=== PATIENT | male | born 1950 | race Caucasian/White ===

== ENCOUNTER 2021-12-02 12:46 | Outpatient (CLI) | payer MEDICARE, SELFPAY ==
--- NOTE | ~2021-12-02 | XR_ITS ---
EXAMINATION: XR femur LT min 2V INDICATION: Myalgia TECHNIQUE: Two views of the left femur are obtained on four radiographs COMPARISON: None available FINDINGS: Bone alignment is normal. There is no fracture. There is mild osteoarthritis of the hip and left knee. The soft tissues are unremarkable. IMPRESSION: 1. Mild osteoarthritis. Reviewed, dictated and finalized at location B. M CONDITIONER FILLING IMPRESSION: 1. Mild osteoarthritis.
--- NOTE | ~2021-12-02 | XR_ITS ---
EXAMINATION: XR femur RT min 2V DATE: 12/02/2021 13:44 INDICATION: Myalgia. TECHNIQUE: 2 views of right femur on 4 radiographs were obtained. COMPARISON: None. FINDINGS: Bone alignment is normal. No fracture. There is mild right hip and knee osteoarthritis. No knee joint effusion. IMPRESSION: 1. Mild polyarticular osteoarthritis. Reviewed, dictated and finalized at location A. OR TECHNICAL RECRUITER
--- NOTE | ~2021-12-02 | XR_ITS ---
EXAMINATION: XR hip BI 2V w AP pelvis DATE: 12/02/2021 13:44 INDICATION: Myalgia TECHNIQUE: AP view the pelvis and two views of each hip were obtained. COMPARISON: None. FINDINGS: Bone alignment is normal. There is no fracture. There is mild osteoarthritis of the hips. T he soft tissues are unremarkable. IMPRESSION: 1. Mild osteoarthritis of the hips. Reviewed, dictated and finalized at location B. RBARIC TECHNOLOGIST
--- NOTE | ~2021-12-02 | XR_ITS ---
EXAMINATION: XR lumbar spine 2-3V DATE: 12/02/2021 13:45 INDICATION: Myalgia TECHNIQUE: Anteroposterior and lateral views of the lumbar spine, and cone-down lateral view of the l umbosacral junction were obtained. COMPARISON: None. FINDINGS: There is no fracture, dislocation, or subluxation. The vertebral body heights, alignment, a nd intervertebral disc spaces are normal. The paravertebral soft tissues are unremarkable. Small dege nerative osteophytes project from the anterior endplates of multiple vertebral bodies. IMPRESSION: 1. Mild lumbar spondylosis. Reviewed, dictated and finalized at location B. UATE TEACHING ASSISTANT IMPRESSION: 1. Mild lumbar spondylosis.
--- NOTE | ~2021-12-02 | XR_ITS ---
EXAMINATION: XR shoulder RT min 2V DATE: 12/02/2021 13:44 INDICATION: Myalgia. TECHNIQUE: 4 views of right shoulder were obtained. COMPARISON: None. FINDINGS: Bone alignment is normal. No fracture. There is mild osteoarthritis of glenohumeral joint a nd acromioclavicular joint. IMPRESSION: 1. Mild polyarticular osteoarthritis. Reviewed, dictated and finalized at location A. H STILL OPERATOR
== END 2021-12-02 12:47 | disposition home or self-care (01) ==
LOC: ANHIMG 12:54
PROVIDERS: PCP Family Medicine; Visit Provider Family Medicine
DX: M79.10 Myalgia, unspecified site (principal); M16.0 Bilateral primary osteoarthritis of hip; M47.896 Other spondylosis, lumbar region; M19.011 Primary osteoarthritis, right shoulder
CPT/HCPCS: 72100; 73030; 73521; 73552

== ENCOUNTER 2022-02-01 08:48 | Outpatient (CLI) | payer MEDICARE, SELFPAY ==
--- NOTE | ~2022-02-01 | XR_ITS ---
XR shoulder LT min 2V DATE: 02/01/2022 09:15 INDICATION: Neck pain, left shoulder pain. TECHNIQUE: 2 views COMPARISON: None FINDINGS: No fracture, dislocation, periosteal reaction or bone destruction or abnormal soft tissue c alcification. Normal alignment at the acromioclavicular and glenohumeral joints. IMPRESSION: No significant abnormality Reviewed, dictated and finalized at location B. IMPRESSION: No significant abnormality
--- NOTE | ~2022-02-01 | XR_ITS ---
XR knee RT 2V DATE: 02/01/2022 09:16 INDICATION: Right knee pain TECHNIQUE: Standing AP and lateral views COMPARISON: None FINDINGS: No fracture or dislocation or joint effusion. No radiopaque intra-articular loose body or c hondrocalcinosis. No periosteal reaction or bone destruction. IMPRESSION: Negative Reviewed, dictated and finalized at location B. IMPRESSION: Negative
--- NOTE | ~2022-02-01 | XR_ITS ---
XR_CERV2-3V_CR DATE: 02/01/2022 09:15 INDICATION: Neck pain TECHNIQUE: AP, lateral and one oblique views COMPARISON: None FINDINGS: C1 and C2 are normally aligned and the odontoid process is intact. No fracture or dislocati on or locked facet or prevertebral soft tissue swelling is detected. There is straightening of the cervical spine which may be due to muscle spasm. There is moderately severe degenerative disc disease at C5-6 and C6-7. There is uncovertebral joint spurring at C5-6 and C6-7. Calcifications in the region of both carotid bulbs. IMPRESSION: Straightening of the cervical spine, which may be due to muscle spasm Moderately severe degenerative disc disease at C5-6 and C6-7 Reviewed, dictated and finalized at Location A. Reviewed, dictated and finalized at location B.
--- NOTE | ~2022-02-01 | XR_ITS ---
XR knee LT 2V DATE: 02/01/2022 09:15 INDICATION: Left knee pain TECHNIQUE: Standing AP and lateral views COMPARISON: None FINDINGS: Mild superior pole patellar enthesopathy at quadriceps tendon insertion. No fracture or dislocation or joint effusion. No periosteal reaction or bone destruction. No radiopaq ue intra-articular loose body or chondrocalcinosis. Joint spaces are well preserved. IMPRESSION: No significant abnormality Reviewed, dictated and finalized at location B. IMPRESSION: No significant abnormality
== END 2022-02-01 08:49 | disposition home or self-care (01) ==
PROVIDERS: PCP Family Medicine; Visit Provider Internal Medicine Rheumatology
DX: M25.562 Pain in left knee (principal); M47.812 Spondylosis without myelopathy or radiculopathy, cervical region; M25.561 Pain in right knee; M25.512 Pain in left shoulder
CPT/HCPCS: 72040; 73030; 73560

== ENCOUNTER → 2022-05-18 08:14 | Outpatient (CLI) | payer MEDICARE, SELFPAY ==
--- NOTE | ~2022-05-18 | DEXA_ITS ---
Bone Density Report Name: JAGDISH MOORE Age: 71 Sex: Male Ethnicity: White Date of : 1950 Indication: history of glucocorticoids; Referring Provider: LEE RENE Study: Bone densitometry was performed. Exam Date: May 18, 2022 Accession number: [id number] Bone Density: Region BMD T-score Z-score Classification AP Spine (L1-L4) 0.826 -2.4 -1.5 Osteopenia Femoral Neck (Left) 0.650 -2.1 -0.9 Osteopenia Total Hip (Left) 0.829 -1.3 -0.7 Osteopenia Femoral Neck (Right) 0.654 -2.0 -0.9 Osteopenia Total Hip (Right) 0.848 -1.2 -0.6 Osteopenia Total Hip Mean 0.839 -1.3 -0.7 Osteopenia World Health Organization criteria for BMD impression classify patients as: Normal (T-score at or above -1.0), Osteopenia (T-score between -1.0 and -2.5), or Osteoporosis (T-score at or below -2.5). 10-year Fracture Risk(1): Major Osteoporotic Fracture 12% Hip Fracture 3.4% Reported Risk Factors: [place] (), Neck BMD=0.654, BMI=28.3, glucocorticoids (1) FRAX(R) Version 3.08. Fracture probability calculated for an untreated patient. Fracture probability may be lower if the patient has received treatment. Clinical Information Provided by Patient: Has taken Glucocorticoids Patient maximum height was 72 Drinks caffeinated beverages Impression: The patient has low bone mass, based on the Total Spine T-score. The patient has an estimated ten-year risk of hip fracture of 3.4% and an estimated ten-year risk of major fracture of 12%, based on the WHO FRAX algorithm. The patient has risk factors, including: history of glucocorticoid therapy. Discussion: BONE DENSITY IS LOW AT ONE OR MORE SKELETAL SITES. THE PATIENT'S BMD AND CLINICAL RISK FACTORS CONTRIBUTE TO THIS PATIENT'S INCREASED RISK OF FRACTURE. This patient's lowest T-score is low at one or more skeletal sites. It meets the World Health Organization's (WHO) criteria for ?low bone mass? (T-score between -1.0 and -2.5). The patient's 10-year risk of hip fracture as calculated by FRAX exceeds the threshold where pharmacological therapy is recommended by the National Osteoporosis Foundation (NOF). However, all treatment decisions require clinical judgment and consideration of individual patient factors, including patient preferences, comorbidities, previous drug use, risk factors not captured in the FRAX model (e.g., frailty, falls, vitamin D deficiency, increased bone turnover, interval significant decline in bone density) and possible under or overestimation of fracture risk by FRAX. The patient should follow a healthful lifestyle (good nutrition with adequate calcium and vitamin D, and appropriate weight-bearing exercise). Follow-Up: Consider repeating this study in 2 years to reassess this patient's status, or sooner if there is some new clinical indication.
== END ==
PROVIDERS: PCP Family Medicine; Visit Provider Internal Medicine Rheumatology
DX: M85.88 Other specified disorders of bone density and structure, other site (principal); M85.852 Other specified disorders of bone density and structure, left thigh; M85.851 Other specified disorders of bone density and structure, right thigh; Z79.52 Long term (current) use of systemic steroids
CPT/HCPCS: 77080

== ENCOUNTER 2022-09-27 06:27 | Day surgery (SDC) | payer MEDICARE, SELFPAY ==
[2022-09-12 14:07] VITALS: BMI 27.1
[2022-09-27 06:41] VITALS: BP 124/70; PULSE 83; RESP 18; TEMP 36.3; O2SAT 98
[2022-09-27] MEDS: LACTATED RINGERS 1,000 ML 150 ML IV CONT (06:51)
--- NOTE | 2022-09-27 07:20 | P.PNAN_ITS ---
Anes - Initial Pre Proc Eval Procedure: Operation Date: 09/27/22 08:00 Proposed Procedures p Screening Colonoscopy - Edgar Glass MD Date/Time: 09/27/22 07:20 Surgeon: Edgar Glass MD Pre Op Diagnosis: Hx of colon polyps Patient Data Age: 71 Gender: M Height: 1.83 m Weight: 95.5 kg Last Vital Signs Temp 97.3 F L 09/27/22 06:41 Pulse 83 09/27/22 06:41 Resp 18 09/27/22 06:41 BP 124/70 09/27/22 06:41 Pulse Ox 98 09/27/22 06:41 O2 Del Method Room Air 09/27/22 06:41 Allergies Allergy/AdvReac Type Severity Reaction Status Date / Time No Known Allergies Allergy Unknown Verified 09/27/22 06:40 Home Medications Medication Instructions Recorded Confirmed Type folic acid 1 mg tablet 1 mg PO DAILY 02/07/22 09/12/22 History omeprazole magnesium 20 mg 20 mg PO DAILY 02/07/22 09/12/22 History tablet,delayed release (Prilosec OTC) hydrochlorothiazide 12.5 mg tablet See Rx Instructions .Route 03/29/22 09/12/22 Rx .COMPLEX #90 tabs losartan 25 mg tablet See Rx Instructions .Route 03/29/22 09/12/22 Rx .COMPLEX #90 tabs omega-3 fatty acids 1,000 mg 1,000 mg PO BID 05/04/22 09/12/22 History capsule alendronate 70 mg tablet 70 mg PO WEEKLY 08/11/22 09/12/22 History methotrexate sodium 2.5 mg tablet 12.5 mg PO WEEKLY 08/11/22 09/12/22 History prednisone 10 mg tablet 10 mg PO DAILY 08/11/22 09/12/22 History pravastatin 10 mg tablet See Rx Instructions .Route 09/08/22 09/12/22 Rx .COMPLEX #90 tabs Patient hx anesthesia problems: none Family hx anesthesia problems: none Results Review: All pre-operative results and documents have been reviewed as part of the pre- operative evaluation. [facility] Social History Social History Smoking status: Former smoker Tobacco type: cigarettes Alcohol intake: current Drinks per week: 5 Substance use: never Substance use type: does not use Lack of Transportation: No Lack of Food: Never True Current Housing: I Have Housing Concerned About Future Housing: No Difficulty Paying Gas/Electric Bills: No Difficulty Paying for Meds: No Currently Unemployed: No Education: Trade/Vocational Certificate Difficulty w/ Childcare or Family Care: No Living arrangements: with family Spiritual care concerns: No Anes - Eval Final PreProcedure Day of Procedure 09/27/22 07:20 Patient weight: obese Heart: regular rate and rhythm Lungs: clear to auscultation Airway: Mallampati scale class II Neurological: alert and oriented Last oral intake: >/= 8 hours ASA classification: III Emergent: no Anesthetic plan: proceed Anesthesia type and monitoring: general GIVS and standard monitoring Results Review: All pre-operative results and documents have been reviewed as part of the pre- operative evaluation. Informed Consent: The patient's anesthetic plan and its attendant risks and benefits were discussed with the patient/family/POA. Questions were solicited and answers provided to the satisfaction of the patient/family/POA.
--- NOTE | 2022-09-27 07:29 | P.HP_ITS ---
History of Present Illness History of Present Illness Consent: Risks, benefits, and alternatives have been discussed and questions answered. Patient agrees to proceed with procedure. Chief complaint: Hx of colon polyps Narrative: Nathan Norton is a 71 year old male Presents for screening colonoscopy. Patient's current weight appetite and bowel movements are normal. Patient denies abdominal pain. Previous colonoscopy 2012 revealed a benign tubular adenoma. Patient presents today for surveillance colonoscopy. Review of Systems Review of Systems: Review of systems noncontributory. [facility] Social History Social History Smoking status: Former smoker Tobacco type: cigarettes Alcohol intake: current Drinks per week: 5 Substance use: never Substance use type: does not use Lack of Transportation: No Lack of Food: Never True Current Housing: I Have Housing Concerned About Future Housing: No Difficulty Paying Gas/Electric Bills: No Difficulty Paying for Meds: No Currently Unemployed: No Education: Trade/Vocational Certificate Difficulty w/ Childcare or Family Care: No Living arrangements: with family Spiritual care concerns: No Meds Home Medications and Allergies Home Medications Medication Instructions Recorded Confirmed Type folic acid 1 mg tablet 1 mg PO DAILY 02/07/22 09/12/22 History omeprazole magnesium 20 mg 20 mg PO DAILY 02/07/22 09/12/22 History tablet,delayed release (Prilosec OTC) hydrochlorothiazide 12.5 mg tablet See Rx Instructions .Route 03/29/22 09/12/22 Rx .COMPLEX #90 tabs losartan 25 mg tablet See Rx Instructions .Route 03/29/22 09/12/22 Rx .COMPLEX #90 tabs omega-3 fatty acids 1,000 mg 1,000 mg PO BID 05/04/22 09/12/22 History capsule alendronate 70 mg tablet 70 mg PO WEEKLY 08/11/22 09/12/22 History methotrexate sodium 2.5 mg tablet 12.5 mg PO WEEKLY 08/11/22 09/12/22 History prednisone 10 mg tablet 10 mg PO DAILY 08/11/22 09/12/22 History pravastatin 10 mg tablet See Rx Instructions .Route 09/08/22 09/12/22 Rx .COMPLEX #90 tabs Allergies Allergy/AdvReac Type Severity Reaction Status Date / Time No Known Allergies Allergy Unknown Verified 09/27/22 06:40 Vital Signs Vital Signs - 24 hr 09/27/22 06:41 Temperature 97.3 F L Pulse Rate 83 Respiratory Rate 18 Blood Pressure 124/70 Pulse Oximetry 98 Oxygen Delivery Room Air Exam Narrative: Physical exam reveals patient to be alert. Vital signs stable. HEENT exam is unremarkable. Patient is anicteric. Lungs are clear to auscultation and percussion. Heart is without murmur or extra sounds. Abdomen bowel sounds are present soft nontender with no organomegaly. Digital external rectal exam is normal. Assessment and Plan Assessment and plan (1) Screening for colon cancer: Code(s): Z12.11 - Encounter for screening for malignant neoplasm of colon Status: Acute Assessment and Plan: Patient presents today for screening colonoscopy. He does have a prior history of adenomatous colon polyp 10 years ago.
[2022-09-27] MEDS: SIMETHICONE ORAL SUSPENSION 20 MG/0.3 ML 30 ML BOTTLE 0.6 ML IRRIGATION (08:06)
[2022-09-27 08:21] VITALS: BP 119/70; PULSE 91; RESP 17; O2SAT 95
[2022-09-27 08:31] VITALS: BP 135/86; PULSE 84; RESP 21; O2SAT 94
[2022-09-27 08:41] VITALS: BP 123/81; PULSE 75; RESP 21; O2SAT 94
== END 2022-09-27 08:50 | disposition home or self-care (01) ==
PROVIDERS: PCP Family Medicine; Visit Provider Internal Medicine Gastroenterology
PROC: 0DJD8ZZ Inspection of Lower Intestinal Tract, Via Natural or Artificial Opening Endoscopic (ICD-10-PCS; CPT 45378; principal; 2022-09-27 08:00)
DX: Z12.11 Encounter for screening for malignant neoplasm of colon (principal); K64.8 Other hemorrhoids; K57.30 Diverticulosis of large intestine without perforation or abscess without bleeding; Q27.33 Arteriovenous malformation of digestive system vessel; Z86.010 Personal history of colon polyps; Z87.891 Personal history of nicotine dependence; E66.9 Obesity, unspecified; Z68.28 Body mass index [BMI] 28.0-28.9, adult
CPT/HCPCS: 45388; J2704; J7120